=== PATIENT | male | born 1995 | race African-American/Black ===

== ENCOUNTER 2025-05-26 06:19 | Emergency (ER) | payer BC ==
[~2025-05-26] VITALS: Ht 182.9 cm; Wt 99.8 kg
--- NOTE | 2025-05-26 06:33 | ERN ---
General Chief Complaint: Influenza Stated Complaint: BODYACHES, COUGH Time Seen by MD: 06:23 History of Present Illness Initial Comments 30-year-old male no past medical history here for evaluation of 2-3 day history of myalgias. No fever no cough no shortness a breath. Denies nausea vomiting diarrhea. Allergies: Coded Allergies: No Known Allergies (Unverified Allergy, Unknown, 05/26/25) Past Medical History Past Medical History: Asthma Past Surgical History: None Respiratory: (+) cough Musculoskeletal: (+) muscle pain Physical Exam General Appearance: (+) no apparent distress Orientation: (+) alert, (+) oriented x 3 Eye: bilateral eye normal inspection, bilateral eye PERRL, bilateral eye EOMI Ear, Nose, Throat: (+) hearing grossly normal, (+) normal ENT inspection, (+) moist mucous membraine, (+) normal pharynx; (-) tonsillar exudate, (-) tonsillar swelling Neck: (+) normal inspection, (+) supple Respiratory: (+) chest non-tender, (+) lungs clear Heart: (+) regular; (-) murmur Vascular: (+) no edema Gastrointestinal: (+) soft, (+) non-tender Extremities: (+) normal range of motion (t), (+) non-tender (The) Results Laboratory and Microbiology Lab and Micro Result Laboratory Tests Test 05/26/25 06:30 Influenza Type A Antigen Negative For Type A Influenza Type B Antigen Negative For Type B SARS-CoV-2 Antigen (Rapid) PRESUMPTIVE NEGATIVE MDM 30-year-old male here for evaluation of myalgias. Likely URI versus flu versus COVID. We will get swabs and reassess. MDM: DIFFERENTIAL DIAGNOSIS: As above RATIONALE: TESTS CONSIDERED AND ORDERED SECONDARY TO SHARED DECISION MAKING INCLUDE: PREVIOUS OUTSIDE RECORDS REVIEWED: OLD ER VISITS. RISK OF COMPLICATION AND/OR MORBIDITY OR MORTALITY OF PATIENT MANAGEMENT: NONE MEDICATIONS-PER MEDICATION RECONCILIATION NEED FOR HOSPITALIZATION: PATIENT DOES NOT MEET CRITERIA FOR HOSPITALIZATION. NEED FOR EMERGENCY MAJOR/MINOR SURGERY: NO THERE ARE NO SOCIAL CONCERNS WITH THIS PATIENT. PRESCRIPTION DRUG MANAGEMENT PRESCRIPTIONS WILL INCLUDE SYMPTOMATIC CARE PATIENT'S PRIOR EXTERNAL MEDICAL RECORDS FROM OTHER ER VISITS WERE REVIEWED BY ME INDICATED. PRIOR TESTING AND RESULTS FROM PREVIOUS VISITS WERE REVIEWED. PRIOR TESTS WERE TAKEN INTO ACCOUNT WITH MEDICAL DECISION MAKING AND RESOURCE UTILIZATION, INDEPENDENT HISTORIAN/HISTORIANS WERE USED TO OBTAIN COMPLETE MEDICAL HISTORY. I INDEPENDENTLY INTERPRETED THE TEST THAT WERE PERFORMED, RESULTS WERE REVIEWED BY ME AND CONSIDERED FINDINGS ON RADIOLOGY IF ORDERED. MEDICAL MANAGEMENT AND EXAMINATION INTERPRETATION DISCUSSIONS WERE HAD BY ME WITH OTHER QUALIFIED HEALTHCARE PROFESSIONALS INDICATED FOR THE PATIENT'S CARE. ED Course Orders Procedure Category Date Status Time Influenza Type A & B, LAB 05/26/25 Complete Rapid 06:23 Covid19 (Sars Antigen LAB 05/26/25 Complete Rapid) 06:23 Vital Signs Date Time Temp Pulse Resp B/P (MAP) Pulse Ox O2 Delivery O2 Flow Rate FiO2 05/26/25 06:21 97.5 66 18 125/68 99 Room Air Flu COVID negative. We will discharge home at this time. Advised on concerning signs and symptoms for which to return here in the emergency room. All que stions answered at this time Patient's prior external medical records from other ER visits were reviewed by me as indicated. Prior testing and results from previous visits were reviewed. Prior tests were taken into account with medical decision making and resource utilization, independent historian/historians were used to obtain complete medical history. I independently interpreted the test that were performed, results were reviewed by me and considered findings on radiology if ordered. Medical management and examination interpretation discussions were had by me with other qualified healthcare professionals as indicated for the patient's care. Labs and imaging reviewed with patient. All questions answered at this time. Patient advised to follow up with primary care physician in the next few days. Patient well-appearing, no acute distress. Vital signs stable. Will discharge at this time. DX & DISP Disposition: Discharge Departure Impression: Primary Impression: Viral URI Condition: Stable Scripts Fluticasone Propionate (Flonase Nasal [place]) 50 Mcg/Actuation [place] 2 SPRAY NS DAILY, #16 GM 0 Refills Prov: AJAY HARRELL MD 05/26/25 Benzonatate (Tessalon Perles) 100 Mg Cap 1-2 CAP PO Q4H for cough for 5 Days, #60 CAP 0 Refills Prov: AJAY HARRELL MD 05/26/25 Guaifenesin (Mucinex) 600 Mg Tablet.er 1 TAB PO BID for cough for 10 Days, #20 TAB 0 Refills Prov: AJAY HARRELL MD 05/26/25 Referrals: NONE (PCP) AJAY HARRELL MD May 26, 2025 06:32
[2025-05-26 07:13] LABS: COVID19 (SARS ANTIGEN RAPID) PRESUMPTIVE NEGATIVE (NEGATIVE); INFLUENZA TYPE A Negative For Type A (NEGATIVE); INFLUENZA TYPE B Negative For Type B (NEGATIVE)
[2025-05-26] MEDS ORDERED: FLUT16H NS (07:28)
[2025-05-26] MEDS ORDERED: GUAI600T50 PO (07:28)
[2025-05-26] MEDS ORDERED: BENZ-39 PO (07:28)
[2025-05-26 08:04] VITALS: BP 121/65; PULSE 65; RESP 18; TEMP 97.5; O2SAT 99
== END 2025-05-26 08:08 | disposition home or self-care (01) ==
LOC: EDH 06:19
DX: J06.9 Acute upper respiratory infection, unspecified (principal); B97.89 Other viral agents as the cause of diseases classified elsewhere; J45.909 Unspecified asthma, uncomplicated; Z20.822 Contact with and (suspected) exposure to COVID-19
CPT/HCPCS: 87426; 87804; 99283

== ENCOUNTER 2025-06-26 21:22 | Emergency (ER) | payer BC ==
[~2025-06-26] VITALS: Ht 182.9 cm; Wt 99.3 kg
[~2025-06-26 21:22] MED LIST: BENZ-39 PO; FLUT16H NS; GUAI600T50 PO
--- NOTE | 2025-06-26 21:55 | ERN ---
ED Note History of Present Illness Stated Complaint: C/O "INFECTION BETWEEN LEFT BIG TOE AND 2ND TOE" Chief Complaint: Toe Pain/Injury Time Seen by MD: 21:26 Time Seen by Midlevel: 21:26 Dictation: The patient is a 30-year-old male with no past medical history who presents to the emergency department with complaints of wound in between his big toe and his 2nd toe onset a month ago. Patient denies any fevers. Patient reports he was being treated for a fungal infection but reports that he forgot his fungal infection medication cream [facility]. Reports he is only here for work. Allergies: Coded Allergies: No Known Allergies (Unverified Allergy, Unknown, 05/26/25) Home Meds Active Scripts Fluticasone Propionate (Flonase Nasal [place]) 50 Mcg/Actuation [place], 2 SPRAY NS DAILY, #16 GM 0 Refills Prov:AJAY HARRELL MD 05/26/25 Benzonatate (Tessalon Perles) 100 Mg Cap, 1-2 CAP PO Q4H for cough for 5 Days, #60 CAP 0 Refills Prov:AJAY HARRELL MD 05/26/25 Guaifenesin (Mucinex) 600 Mg Tablet.er, 1 TAB PO BID for cough for 10 Days, #20 TAB 0 Refills Prov:AJAY HARRELL MD 05/26/25 Past Medical History Past Medical History: No Pertinent History Surgical History: None RN Note Reviewed/Agreed w/PFSH: Yes Review of System Dictation Constitutional: Negative for fever,chills, and weight loss Eyes: Negative for injury, pain,redness, and discharge ENT: Negative for injury,pain or swelling Cardiovascular: Negative for chest pain, palpitations, and edema Respiratory: Negative for shortness of breath, cough, and wheezing, Abdomen/GI: Negative for abdominal pain, nausea, vomiting, diarrhea, and constipation Back: Negative for injury and pain : Negative for injury, bleeding and discharge MS/Extremity: Negative for injury and deformity Skin: Negative for rash, and discoloration rash to 1st and 2nd toe left foot Neuro: Negative for headache, weakness, numbness, tingling, and seizure Psych: Negative for suicide ideation, homicidal ideation, and hallucinations Initial Vital Sign VS Vital Signs Date Time Temp Pulse Resp B/P (MAP) Pulse Ox O2 Delivery O2 Flow Rate FiO2 12/15/25 21:25 97.9 64 20 128/80 100 Room Air Physical Exam Dictation Vital Signs reviewed General Appearance: Alert, oriented x 3, no acute distress, well developed, nourished. Head and Face: non-traumatic. Eyes: PERRL, pink conjunctivas, eyelid no trauma, anterior chamber with arcus senilis. Ears: Pinnas intact and no signs of trauma or erythema ear canals clear and no discharge TM no erythema Nose: No discharge, no bleeding. Oropharynx: Mouth normal, tongue pink. pharynx clear,no erythema, tonsils no exudates, no abscesses noted, mucous membrane moist Neck: Supple, non-tender, no thyromegaly, no masses, no JVD, no bruits Breast:Deferred Chest:No tenderness, no crepitus, no paradoxical movement, no retractions Lungs:Clear, well-ventilated, symmetric, no rales, no wheezing, no rhonchi, no stridor, good breath sounds bilaterally Heart: Regular rate, regular rhythm, no murmur, no gallops Vascular: no peripheral edema, Abdomen: Soft, positive bowel sounds, nondistended, no guarding, nontender, no rebound, no masses no hepatomegaly, no splenomegaly, no Jalloh's sign, no hernias. Rectal: Deferred Genital: Deferred Neurological: Normal speech, motor function intact, sensory function intact Musculoskeletal: Neck nontender, full range of motion, back nontender, full range of motion, Extremities: nontender, full range of motion Skin: Color pink, dry, no turgor, no rash, no lacerations, no abrasions, no c ontusions. erythema and cracked skin in between left first and second toe Lymphatic: Deferred Results (Laboratory/Radiology) Labs Reviewed?: Yes ED Course ED Course Vital Signs Date Time Temp Pulse Resp B/P (MAP) Pulse Ox O2 Delivery O2 Flow Rate FiO2 06/26/25 21:25 97.9 64 20 128/80 100 Room Air Medical Decision Making MDM The patient is a 30-year-old male with no past medical history who presents to the emergency department with complaints of wound in between his big toe and his 2nd toe onset a month ago. Patient denies any fevers. Patient reports he was being treated for a fungal infection but reports that he forgot his fungal infection medication [place]. Reports he is only here for work. Patient with some erythema and cracked skin in between left first and second toe. Symptoms consistent with a pedis. Patient will be sent in ointment. Patient instructed to follow up with the PCP. Patient no acute distress, nontoxic appearance Differential diagnosis: Cellulitis, tinea pedis, abscess Need for hospitalization: Patient does not meet criteria for hospitalization. There are no social concerns with this patient. DX & DISP Disposition: Discharge Departure Impression: Primary Impression: Tinea pedis of left foot Condition: Stable Scripts Tolnaftate (Tolnaftate) 1 % Cream..g. 1 APPL TP BID for 28 Days, #30 GM 0 Refills Prov: ROSHAN HEALY 06/26/25 Additional Instructions: Please apply the ointment as directed. Follow up with your primary doctor in 1- 2 days. FOLLOW-UP WITH PRIMARY CARE PROVIDER IN 1 TO 2 DAYS. TAKE MEDICATIONS DIRECTED HERE IN THE EMERGENCY ROOM. OKAY TO CONTINUE HOME MEDICATIONS UNLESS OTHERWISE DISCUSSED DURING YOUR VISIT IN THE EMERGENCY ROOM TODAY. RETURN TO YOUR NEAREST EMERGENCY ROOM IF SYMPTOMS WORSEN OR IF THERE IS NO IMPROVEMENT. CALL 911 IF YOU NEED IMMEDIATE ASSISTANCE. TAKE TYLENOL [id number] NEEDED AND IF NO CONTRAINDICATIONS ARE PRESENT. INCREASE ORAL HYDRATION. A WOUND CULTURE OR URINE CULTURE WAS ORDERED HERE IN THE EMERGENCY ROOM DEPARTMENT PLEASE FOLLOW-UP WITH PRIMARY CARE PROVIDER AND ADVISE THEM TO GET REPEAT PORTS FROM OUR FACILITY. IF YOU HAD ANY BERTA WRAP/SPLINTS THAT WERE APPLIED HERE, PLEASE DO NOT REMOVE THEM UNTIL YOU SEE YOUR PRIMARY CARE OR SPECIALTY. Referrals: SELF,REFERRAL (PCP) Time of Disposition: 21:57 I have reviewed the case, and I agree with, Diagnosis and Plan ROSHAN HEALY Jun 26, 2025 21:55
[2025-06-26] MEDS ORDERED: TOLN28CR6 TP (21:59)
[2025-06-26 22:05] VITALS: BP 132/74; PULSE 60; RESP 18; TEMP 97.3; O2SAT 100
== END 2025-06-26 22:21 | disposition home or self-care (01) ==
LOC: EDH 21:22
DX: B35.3 Tinea pedis (principal)
CPT/HCPCS: 99282